=== PATIENT | female | born 1940 | race Caucasian/White ===

== ENCOUNTER 2018-04-06 12:40 | Inpatient (IN) | payer MEDICARE, MEDICAID ==
[2018-04-07] MEDS ORDERED: MECLIZINE 25 MG TABLET PO PRN (16:05)
[2018-04-07] MEDS: ACETAMINOPHEN 500 MG TABLET PO PRN (18:50)
[2018-04-07] MEDS: ASPIRIN 325 MG TAB ENTERIC-COATED PO SCH (21:30)
[2018-04-08] MEDS: ACETAMINOPHEN 500 MG TABLET PO PRN ×2 (02:33→21:26)
[2018-04-08] MEDS: LEVOTHYROXINE SODIUM 100 MCG TABLET PO SCH (07:41)
[2018-04-08] MEDS: ASPIRIN 325 MG TAB ENTERIC-COATED PO SCH (10:02)
[2018-04-08] MEDS: SPIRONOLACTONE 25 MG TAB PO SCH (10:02)
[2018-04-08] MEDS: LORATADINE 10 MG TABLET PO SCH (10:02)
[2018-04-08] MEDS ORDERED: MAGNESIUM HYDROXIDE 30 ML UDC PO ONE (10:40)
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
--- NOTE | 2018-04-08 13:38 | History & Physical ---
History of Present Illness - Date of Service Date of Service for History & Physical: 04/08/18 - History of Present Illness Admitting Diagnosis: rt hip hemiarthroplasty History of Present Illness: 77 year old female admitted to swing bed for rehab following a fall and right hip hemiarthroplasty. Patient fell at home on 04/03 as a result of vertigo. She denied LOC or head injury, with her only complaint of right sided hip pain. Initial x-ray imaging showed a right subcapital femoral neck fracture. She had a right hemiarthroplasty on 04/04/2018. She had no postop complications. While inpatient at [facility], ENT was consulted and determined that her vertigo was not vestibular in origin. She also had an ECHO to further evaluate a heart murmur, which patient reports as being WNL. Her medical history includes: HTN, hypothyroidism, dizziness, fall, right hemiaroplasty of hip, heart murmur. 04/08/2018: Patient alert & oriented x 4, sitting in chair eating lunch upon evaluation. Patient reports minimal pain, actively willing to participate in therapy. Patient requesting referral to Dr. Griffiths for a dermatology consult of multiple lesions noted on her chest, patient reporting a history of skin cancer. Patient will also need to have ASA 325mg BID restarted upon discharge, to be taken x 1 month, per orders from ortho. ASA therapy stopped while patient here due to being treated with Lovenox. PCP: [facility] [place] visiting physicians Review of Systems Reviewed: No additional complaints except as noted below Constitutional: Reports: As per HPI, Weakness. Denies: Chills, Fever, Malaise, Night sweats Eyes: Reports: As per HPI. Denies: Eye discharge, Eye pain ENT: Denies: Congestion Respiratory: Denies: Cough, Dyspnea, Wheezes Cardiovascular: Reports: Edema (RLE), Murmurs. Denies: Arrhythmia, Chest pain Endocrine: Reports: As per HPI Gastrointestinal: Reports: As per HPI, Constipation. Denies: Abdominal pain, Diarrhea Genitourinary: Reports: As per HPI Musculoskeletal: Reports: As per HPI, Other (right hip pain) Skin: Reports: As per HPI, Lesions (multiple lesions on chest) Neurological: Reports: As per HPI, Abnormal gait, Weakness Psychiatric: Reports: As per HPI Hematological/Lymphatic: Reports: As per HPI Past Medical History - SOCIAL HISTORY Smoking Status: Never smoker Alcohol Use: None - RESPIRATORY Hx Respiratory Disorders: Yes Hx Asthma: Yes - CARDIOVASCULAR Hx Cardio Disorders: Yes Comment:: murmur, echocardiogram 04/21 - NEURO Hx Neuro Disorders: Yes Hx Dizziness: Yes Hx Headaches: Yes - GI Hx GI Disorders: Yes Hx Reflux: Yes - ENDOCRINE Hx Diabetes: No - MUSCULOSKELETAL Hx Musculoskeletal Disorders: Yes Comment:: fx rt hip - PSYCH Hx Psych Problems: No - HEMATOLOGY/ONCOLOGY Hx Cancer: Yes Hx Chemotherapy: No Hx Radiation Therapy: No Family Medical History Any Significant Family History?: Yes Hx Cancer: Mother H&P Meds/Allergies - Allergies Allergies: Allergies Allergy/AdvReac Type Severity Reaction Status Date / Time No Known Drug Allergies Allergy Verified 04/07/18 15:55 - Active Medications Active Medications: Current Medications Acetaminophen (Tylenol 500mg Tab) 1,000 mg PO Q6H PRN PRN Reason: PAIN - MILD TO MODERATE (1-7) Last Admin: 04/08/18 02:33 Dose: 1,000 mg Aspirin (Ecotrin (Ec)) 325 mg PO BID [facility] Last Admin: 04/08/18 10:02 Dose: 325 mg Levothyroxine Sodium (Synthroid) 100 mcg PO DAILYTHY [facility] Last Admin: 04/08/18 07:41 Dose: 100 mcg Loratadine (Claritin) 10 mg PO DAILY [facility] Last Admin: 04/08/18 10:02 Dose: 10 mg Meclizine HCl (Antivert) 25 mg PO Q8H PRN PRN Reason: DIZZINESS Spironolactone (Aldactone) 25 mg PO DAILY [facility] Last Admin: 04/08/18 10:02 Dose: 25 mg Physical Exam - Vital Signs Vital Signs: Vital Signs - Last 24 Hrs Temp Pulse Resp BP Pulse Ox 04/08/18 08:00 97.8 F 98 H 18 136/80 94 L 04/07/18 15:00 99.0 F 109 H 20 128/60 95 - General General Appearance: Alert, Oriented x3, Cooperative, No acute distress Limitations: Physical limitation - Head Head exam: Atraumatic, Normocephalic, Normal inspection - Eye Eye exam: Normal appearance - ENT ENT exam: Mucous membranes moist - Neck Neck exam: Normal inspection, Full ROM - Respiratory Respiratory exam: Normal lung sounds bilaterally - Cardiovascular Cardiovascular Exam: Regular rate, Normal rhythm, Systolic murmur Peripheral Pulses: 2+: Radial (R), Radial (L), Dorsalis Pedis (R), Dorsalis Pedis (L) - GI/Abdominal GI/Abdominal exam: Soft, Normal bowel sounds - Rectal Rectal exam: Deferred - exam: Deferred - Extremities Extremities exam: Pedal edema (RLE) - Neurological Neurological exam: Abnormal gait, Alert, Oriented X3 - Psychiatric Psychiatric exam: Normal affect, Normal mood - Skin Type of lesion: Other (abnormal lesions noted on chest) Description of rash: Macular VTE H&P Assessment - Risk for VTE Risk for VTE: Yes Risk Level: Moderate Risk Assessment Date: 04/08/18 Risk Assessment Time: 12:00 VTE Orders Placed or Will Be Placed: Yes Plan - Detailed Diagnosis and Plan (1) Impaired mobility Current Visit: Yes Status: Acute Base Code: Z74.09 - OTHER REDUCED MOBILITY Comment: 04/08/2018: Impaired mobility due to recent hip fracture with right sided hemiarthroplasty -PT/OT ordered (2) Hip fracture Current Visit: Yes Status: Acute Base Code: S72.009A - FRACTURE OF UNSP PART OF NECK OF UNSP FEMUR, INIT Comment: 04/08/2018: surgery 04/04/2018 for right hip fracture -Follow-up scheduled with ortho 04/20/18 -Patient participating in rehab while admitted for swing bed (3) DVT prophylaxis Current Visit: Yes Status: Acute Base Code: [id number] - Comment: 04/08/2018: Patient at moderate risk due to age, hospitalization, recent surgery, and impaired mobility -Lovenox 40mg SQ daily (4) Full code status Current Visit: Yes Status: Acute Base Code: Z78.9 - OTHER SPECIFIED HEALTH STATUS Comment: 04/08/2018: Patient is a full code this admission
--- NOTE | 2018-04-08 13:56 | Physical Therapy Tx Note ---
Physical Therapy Tx Note - Treatment Note Tolerated: Good Total Time Spent With Patient: 20 Physical Therapy Tx Note: Detail (Patient was in bathroom upon LAND CLEARER arrival. Patient ambulated to chair with nursing. Patient states the muscles of her right LE are sore. Patient performed the following exercises x10 reps each: seated heel raises, seated toe raises, seated marching, LAQ, glut squeezes, abdominal isometrics, seated isometric hip abduction, and seated isometric hip adduction. Patient reports muscle soreness with exercises. Patient required verbal cueing to perform exercises correctly. Patient was left seated in chair with call light within reach.) Prognosis: Good
[2018-04-08] MEDS: DOCUSATE SODIUM 100 MG CAPSULE PO SCH (21:12)
[2018-04-08] MEDS: DIPHENHYDRAMINE HCL 25 MG CAPSULE PO PRN (23:32)
[2018-04-09] MEDS: LEVOTHYROXINE SODIUM 100 MCG TABLET PO SCH (06:21)
[2018-04-09] MEDS ORDERED: GLYCERIN ADULT SUPPOSITORY RC ONE (09:00)
[2018-04-09] MEDS: ENOXAPARIN 40 MG/0.4 ML SYR SQ SCH (10:05)
[2018-04-09] MEDS: LORATADINE 10 MG TABLET PO SCH (10:05)
[2018-04-09] MEDS: SPIRONOLACTONE 25 MG TAB PO SCH (10:05)
[2018-04-09] MEDS: DOCUSATE SODIUM 100 MG CAPSULE PO SCH ×2 (10:05→22:50)
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
--- NOTE | 2018-04-09 15:00 | Physical Therapy Tx Note ---
Physical Therapy Tx Note - Treatment Note Tolerated: Good Total Time Spent With Patient: 30 Physical Therapy Tx Note: Detail (Pt sitting up in chair upon arrival. Cooperative for therapy. Performed 10 reps each of reclined marching, knee extension, ankle dorsiflexion, resisted hip abduction w/yellow theraband, resisted knee flexion w/yellow theraband, isometric hip adduction w/pillow. Sit to stand transfer to front-wheeled walker w/SBA, ambulated to bed using front wheeled walker w/CGA, SBA for stand/sit transfer. Moderate assist for LE' s to get into bed and moderate assist to scoot up in bed. Elevated HOB, positioned bedside table, placed phone, call light, and beverage in reach. Nrsg notified.) Physical Therapy Problem List: Detail (1. General lower extremity weakness. 2. Requires assistance for transfers and gait. 3. Difficulty walking. 4. History of falls/fear of falling.) Physical Therapy Goals: 1. Pt will safely and independently get into/out of bed. 2. Pt will safely and independently perform stand pivot transfers with front-wheeled walker. 3. Pt will safely and independently ambulate over household distances/surfaces with appropriate assistive device. 4. Pt will exhibit at least 4/5 strength in major muscle groups of B LE's for greater stability with ambulation. Prognosis: Good Physical Therapy Plan: Pt will be seen 1-2 times daily M - F for instruction in LE strengthening exercises, transfer training, and gait and balance training to facilitate safe return to home environment.
[2018-04-09] MEDS ORDERED: ZINC OXIDE 28.35 GM TUBE TOP PRN (20:32)
[2018-04-10] MEDS: ACETAMINOPHEN 500 MG TABLET PO PRN ×2 (04:27→20:55)
[2018-04-10] MEDS: LEVOTHYROXINE SODIUM 100 MCG TABLET PO SCH (07:13)
[2018-04-10] MEDS: ENOXAPARIN 40 MG/0.4 ML SYR SQ SCH (09:06)
[2018-04-10] MEDS: SPIRONOLACTONE 25 MG TAB PO SCH (09:07)
[2018-04-10] MEDS: DOCUSATE SODIUM 100 MG CAPSULE PO SCH ×3 (09:07→21:20)
[2018-04-10] MEDS: LORATADINE 10 MG TABLET PO SCH (09:07)
[2018-04-10] MEDS ORDERED: LOPERAMIDE 2 MG CAPSULE PO PRN (12:24)
[2018-04-11 06:27] LABS: BASO % 0.6 % (0-6); EOS % 8.6 % (0-6); GRAN % 60.7 % (47-80); HEMATOCRIT 34.4 % (35.0-47.0); HEMOGLOBIN 10.3 gm/dl (11.6-16.0); LYMPH % 17.6 % (16-45); MEAN CORPUSCULAR HEMOGLOBIN 28.1 pg (27-33); MEAN CORPUSCULAR HGB CONC 29.9 g/dl (32-36); MEAN PLATELET VOLUME 8.5 fl (7.4-10.4); MONO % 12.5 % (0-9); PLATELET COUNT 436 K/uL (130-400); RED BLOOD COUNT 3.66 M/uL (3.80-5.40); RED CELL DISTRIBUTION WIDTH 14.5 % (11.5-14.5); WHITE BLOOD COUNT W/O DIFF 6.9 K/uL (4.2-12.2)
[2018-04-11 06:40] LABS: ALBUMIN 2.7 g/dL (4.0-5.0); ALKALINE PHOSPHATASE 102 U/L (35-104); ALT/SGPT 7 U/L (<33); AST/SGOT 11 U/L (10.0-35.0); BLOOD UREA NITROGEN 10 mg/dL (8-23); CREATININE 0.6 mg/dL (0.5-0.9); EST GLOMERULAR FILTRATION RATE > 60 mL/min; GLUCOSE,RANDOM 85 mg/dL (74-109); TOTAL PROTEIN 5.4 g/dL (6.6-8.7)
[2018-04-11] MEDS: LEVOTHYROXINE SODIUM 100 MCG TABLET PO SCH (08:15)
[2018-04-11] MEDS: LORATADINE 10 MG TABLET PO SCH (09:57)
[2018-04-11] MEDS: SPIRONOLACTONE 25 MG TAB PO SCH (09:57)
[2018-04-11] MEDS: ENOXAPARIN 40 MG/0.4 ML SYR SQ SCH (09:57)
[2018-04-11] MEDS: DOCUSATE SODIUM 100 MG CAPSULE PO SCH ×2 (09:57→22:01)
--- NOTE | 2018-04-11 11:52 | Swing Bed Certification/Recert ---
Initial Certification Due: 04/07/18 14 Day Re-Cert Due: 04/21/18 44 Day Re-Cert Due: 05/21/18 76 Day Re-Cert Due: 06/20/18 CERTIFICATION 3 CERTIFICATION OF PATIENT ADMISSION Required at time of admission. Due: 04/07/18 I certify that SNF services are required to be given on an inpatient basis because of the above named patient's need for alf care on a continuing basis for the condition(s) for which he/she was receiving inpatient hospital services prior to his/her transfer to the SNF. The patient's current needs for skilled care includes: [physical therapy, occupational therapy, assistance with transfers, assistance with ADLs] Palma Oliveira, N.P. 04/11/18
[2018-04-11] MEDS: ACETAMINOPHEN 500 MG TABLET PO PRN ×2 (13:15→19:46)
[2018-04-11] MEDS: DIPHENHYDRAMINE HCL 25 MG CAPSULE PO PRN (23:05)
[2018-04-12] MEDS: ACETAMINOPHEN 500 MG TABLET PO PRN ×3 (02:45→21:43)
[2018-04-12] MEDS: LEVOTHYROXINE SODIUM 100 MCG TABLET PO SCH (06:17)
[2018-04-12] MEDS: DOCUSATE SODIUM 100 MG CAPSULE PO SCH ×2 (09:52→21:43)
[2018-04-12] MEDS: SPIRONOLACTONE 25 MG TAB PO SCH (09:52)
[2018-04-12] MEDS: LORATADINE 10 MG TABLET PO SCH (09:53)
[2018-04-12] MEDS: ENOXAPARIN 40 MG/0.4 ML SYR SQ SCH (09:53)
--- NOTE | 2018-04-12 09:56 | Occupational Therapy Tx Note ---
Occupational Therapy Tx Note - Treatment Note Tolerated: Good Total Time Spent With Patient: 45 (ADL) Occupational Therapy Treatment Note: Detail (S: Pt up in chair, agreeable to showering. She does not have her clothing or dye and chemical coordinator available. O: Sit to stand and amb to toilet with 2 wheeled walker and SBA. Pt completed doffing of briefs with dye and chemical coordinator as well as toileting and hygiene Indly. Pt amb to shower and doffed gown with assist to untie. Pt sat on raised commode chair and completed total body showering with SBA during standing. She was unable to wash right lower leg and foot due to hip precautions but was Ind with remaining showering and she was Ind with drying self with exception of right foot/lower leg. Pt amb to chair with 2 wheeled walker and SBA. She was educated and demonstrated LE dressing technique for donning brief with dye and chemical coordinator. She donned gown with assist to tie. Slipper socks were donned with total assist for right and mod assist for left. Pt able to brush hair Indly. A: Pt mildly fatigued but did not require rest breaks during ADLs. Ind with shower with exception of right LE. Ind with partial dressing using dye and chemical coordinator and modified techniques.) Occupational Therapy Problem List: Detail (1. Decreased Ind with dressing. 2. Decreased Ind with showering/bathing. 3. Decreased knowledge of total hip precautions. 4. Decreased UE strength and overall endurance needed to return home alone.) Occupational Therapy Goals: 1. Pt will be safe and Ind with total body dressing using adaptive equipment while maintaining total hip precautions. 2. Pt will be safe and Ind with showering and/or sponge bathing. 3. Pt will recall total hip precautions and demonstrate during ADLs. 4. Pt will improve overall endurance and UE strength to allow safe and Ind self cares and functional mobility. Prognosis: Good Occupational Therapy Plan: OT 2-4 times weekly to address self cares, functional mobility, endurance, UE function to allow safe and Ind return home.
--- NOTE | 2018-04-12 13:46 | Physical Therapy Tx Note ---
Physical Therapy Tx Note - Treatment Note Tolerated: Good Total Time Spent With Patient: 25 Physical Therapy Tx Note: Detail (The patient was sitting up in chair when PT arrived. The patient ambulated with wheeled walker WBAT on the R LE a distance of 65 feet x 1 with supervison for safety only. The patient ambulates with increased trunk flexion. The patient completed the following LE strengthening exercises bilaterally : LAQ, gluteal squeezes, hip adductor squeezes, resisted hip abduction , hamstring curls and ankle pumps all x 10 reps.) Physical Therapy Problem List: Detail (1. General lower extremity weakness. 2. Requires assistance for transfers and gait. 3. Difficulty walking. 4. History of falls/fear of falling.) Physical Therapy Goals: 1. Pt will safely and independently get into/out of bed. 2. Pt will safely and independently perform stand pivot transfers with front-wheeled walker. 3. Pt will safely and independently ambulate over household distances/surfaces with appropriate assistive device. 4. Pt will exhibit at least 4/5 strength in major muscle groups of B LE's for greater stability with ambulation. Physical Therapy Plan: Pt will be seen 1-2 times daily M - F for instruction in LE strengthening exercises, transfer training, and gait and balance training to facilitate safe return to home environment.
[2018-04-13] MEDS: LEVOTHYROXINE SODIUM 100 MCG TABLET PO SCH (06:12)
[2018-04-13] MEDS: ENOXAPARIN 40 MG/0.4 ML SYR SQ SCH ×2 (08:30→11:19)
[2018-04-13] MEDS: LORATADINE 10 MG TABLET PO SCH ×2 (08:30→11:18)
[2018-04-13] MEDS: SPIRONOLACTONE 25 MG TAB PO SCH ×2 (08:30→11:18)
[2018-04-13] MEDS: DOCUSATE SODIUM 100 MG CAPSULE PO SCH ×3 (08:30→22:02)
--- NOTE | 2018-04-13 11:13 | Occupational Therapy Tx Note ---
Occupational Therapy Tx Note - Treatment Note Tolerated: Good Total Time Spent With Patient: 20 (ADL) Occupational Therapy Treatment Note: Detail (S: Pt up in chair, needs to use the bathroom. O: Sit to stand and amb to bathroom with 2 wheeled walker Indly. Pt doffed briefs Indly and completed toileting including hygiene and briefs Indly. Pt amb to sink and washed hands Indly with 2 wheeled walker. Pt amb to chair with 2 wheeled walker Indly. Pt educated and demonstrated learning of modified LE dressing techniques using administrative executive and sock aid to doff slipper socks and don hospital pants and slipper socks. Reviewed kitchen set up , pt feels she has her technique down as she was not very mobile prior to fracture. Pt amb [address] hallway with 2 wheeled walker Indly. A: Ind with use of adaptive equipment for pants/socks (she does not have her own clothing available), Ind with toileting.) Occupational Therapy Problem List: Detail (1. Decreased Ind with dressing. 2. Decreased Ind with showering/bathing. 3. Decreased knowledge of total hip precautions. 4. Decreased UE strength and overall endurance needed to return home alone.) Occupational Therapy Goals: 1. Pt will be safe and Ind with total body dressing using adaptive equipment while maintaining total hip precautions. 2. Pt will be safe and Ind with showering and/or sponge bathing. 3. Pt will recall total hip precautions and demonstrate during ADLs. 4. Pt will improve overall endurance and UE strength to allow safe and Ind self cares and functional mobility. Prognosis: Good Occupational Therapy Plan: OT 2-4 times weekly to address self cares, functional mobility, endurance, UE function to allow safe and Ind return home.
--- NOTE | 2018-04-13 12:03 | Physical Therapy Tx Note ---
Physical Therapy Tx Note - Treatment Note Tolerated: Fair Total Time Spent With Patient: 35 Physical Therapy Tx Note: Detail (The patient was up in chair when PT arrived and reported she was having minimal R hip pain but did not want to take pain medication. The patient ambulated with wheeled walker independently to bed. The patient initially required max PA to lift Le's with sit to supine, stating " I can't lift my legs at all." The patient was shown how to use a strap to lift R LE and required maximal verbal encouragement and moderate assist to use strap. The patient was independent with supine to sit, one time with using handrailing, the other time without. The patient was also instructed to use L LE to lift RLE with sit to supine , patient required maximal verbal cues, encouragement and minimal PA. The patient completed supine LE exercises: R LE heel slides, hip abduction, gluteal sets, hip adductor squeezes, quadricep sets all x 10 reps, SLR x 3 reps.The patient ambulated with wheeled walker a distance of 26 feet x 1. The patient had difficulty with motor planning with supine to and from sit transfer. PT will continue to emphasize this.) Physical Therapy Problem List: Detail (1. General lower extremity weakness. 2. Requires assistance for transfers and gait. 3. Difficulty walking. 4. History of falls/fear of falling.) Physical Therapy Goals: 1. Pt will safely and independently get into/out of bed. 2. Pt will safely and independently perform stand pivot transfers with front-wheeled walker. 3. Pt will safely and independently ambulate over household distances/surfaces with appropriate assistive device. 4. Pt will exhibit at least 4/5 strength in major muscle groups of B LE's for greater stability with ambulation. Physical Therapy Plan: Pt will be seen 1-2 times daily M - F for instruction in LE strengthening exercises, transfer training, and gait and balance training to facilitate safe return to home environment.
[2018-04-13] MEDS: ACETAMINOPHEN 500 MG TABLET PO PRN (20:17)
[2018-04-14] MEDS: LEVOTHYROXINE SODIUM 100 MCG TABLET PO SCH (06:12)
[2018-04-14] MEDS: LORATADINE 10 MG TABLET PO SCH (09:40)
[2018-04-14] MEDS: DOCUSATE SODIUM 100 MG CAPSULE PO SCH ×2 (09:41→21:13)
[2018-04-14] MEDS: SPIRONOLACTONE 25 MG TAB PO SCH (09:41)
[2018-04-14] MEDS: ENOXAPARIN 40 MG/0.4 ML SYR SQ SCH (09:41)
[2018-04-14] MEDS: ACETAMINOPHEN 500 MG TABLET PO PRN ×2 (11:33→21:13)
--- NOTE | 2018-04-14 11:43 | Physical Therapy Tx Note ---
Physical Therapy Tx Note - Treatment Note Tolerated: Good Total Time Spent With Patient: 40 Physical Therapy Tx Note: Detail (Patient was reclined in chair upon PATIENT ADMITTING CLERK arrival. Patient states is experiencing a dizzy spell. Patient transferred sit to and from stand SBA x1. Patient ambulated 18 feet with wheeled walker SBA x1. Patient transferred sit to and from stand SBA x1. Patient ambulated 18 feet with wheeled walker SBA x1. Patient performed the following exercises x10 reps each seated in chair: LAQ, marching, heel raises, toe raises, hamstring curls with red theraband, isometric hip adduction, glut squeezes, and abdominal isometrics. Patient transferred sit to and from stand CGA x1. Patient ambulated 5 feet with wheeled walker CGA x1. Patient transferred sit to supine min assist x1 with patient using strap around foot right to assist with lifting. Patient scooted up in bed min assist x1 to keep left foot from sliding. Patient transferred supine to sit independently. Patient transferred sit to and from stand SBA x1. Patient ambulated 5 feet with wheeled walker CGA x1. Patient tolerated treatment well. Patient reports dizziness throughout treatment. Patient required verbal cueing with sit to supine transfer and with exercises to perform correctly. Patient was left reclined in chair with call light within reach.) Physical Therapy Problem List: Detail (1. General lower extremity weakness. 2. Requires assistance for transfers and gait. 3. Difficulty walking. 4. History of falls/fear of falling.) Physical Therapy Goals: 1. Pt will safely and independently get into/out of bed. 2. Pt will safely and independently perform stand pivot transfers with front-wheeled walker. 3. Pt will safely and independently ambulate over household distances/surfaces with appropriate assistive device. 4. Pt will exhibit at least 4/5 strength in major muscle groups of B LE's for greater stability with ambulation. Prognosis: Good Physical Therapy Plan: Pt will be seen 1-2 times daily M - F for instruction in LE strengthening exercises, transfer training, and gait and balance training to facilitate safe return to home environment.
--- NOTE | 2018-04-14 14:45 | Occupational Therapy Tx Note ---
Occupational Therapy Tx Note - Treatment Note Tolerated: Good Total Time Spent With Patient: 20 (ther ex) Occupational Therapy Treatment Note: Detail (S: Pt sitting up in chair, had a migraine headache earlier that is subsiding. O: Reviewed OT hip kit information and pt would like to also purchase a leg newsstand vendor. Pt completed kushal UE exercises with red theraband including bicep curls, tricep extensions, shoulder flexion, shoulder extension, shoulder horizontal abduction, shoulder horizontal adduction, shoulder abduction with arms at sides x 10 reps each. Pt educated re: HEP but will require continued teaching. A: Fatigue in arms after ther ex) Occupational Therapy Problem List: Detail (1. Decreased Ind with dressing. 2. Decreased Ind with showering/bathing. 3. Decreased knowledge of total hip precautions. 4. Decreased UE strength and overall endurance needed to return home alone.) Occupational Therapy Goals: 1. Pt will be safe and Ind with total body dressing using adaptive equipment while maintaining total hip precautions. 2. Pt will be safe and Ind with showering and/or sponge bathing. 3. Pt will recall total hip precautions and demonstrate during ADLs. 4. Pt will improve overall endurance and UE strength to allow safe and Ind self cares and functional mobility. Prognosis: Good Occupational Therapy Plan: OT 2-4 times weekly to address self cares, functional mobility, endurance, UE function to allow safe and Ind return home.
[2018-04-15] MEDS: ACETAMINOPHEN 500 MG TABLET PO PRN ×2 (03:08→21:40)
[2018-04-15] MEDS: LEVOTHYROXINE SODIUM 100 MCG TABLET PO SCH (07:00)
--- NOTE | 2018-04-15 09:46 | Physician Progress Note ---
Subjective - Date Date of Progress Note: 04/15/18 - Admitting Diagnosis Diagnosis: rt hip hemiarthroplasty - Subjective Events since last encounter: The patient is alert, awake and oriented. She complains that she has had some dizziness but feels that she is improving. Nursing Care Plan Problem List Activity Intolerance (Swing Bed) Start: 04/07/18 15: 22 Freq: Status: Active Protocol: Created 04/07/18 15:22 [facility] (Rec: 04/07/18 15:22 KM [id number]) Altered Peripheral Tissue Perfusion Start: 04/07/18 16: 57 Freq: Status: Active Protocol: Created 04/07/18 16:57 [facility] (Rec: 04/07/18 16:57 [facility] [id number]) Altered Thought Process (Fall Risk) Start: 04/07/18 15: 32 Freq: Status: Active Protocol: Created 04/07/18 15:32 [facility] (Rec: 04/07/18 15:32 KM [id number]) High Risk: Post-Op Complications Start: 04/07/18 16: 57 Freq: Status: Active Protocol: Created 04/07/18 16:57 [facility] (Rec: 04/07/18 16:57 KM [id number]) Impaired Mobility (Fall Risk) Start: 04/07/18 15: 32 Freq: Status: Active Protocol: Created 04/07/18 15:32 [facility] (Rec: 04/07/18 15:32 KM [id number]) Impaired Skin Integrity Start: 04/07/18 16: 57 Freq: Status: Active Protocol: Created 04/07/18 16:57 [facility] (Rec: 04/07/18 16:57 KM [id number]) Knowledge Deficit (Swing Bed) Start: 04/07/18 15: 22 Freq: Status: Active Protocol: Created 04/07/18 15:22 [facility] (Rec: 04/07/18 15:22 KM [id number]) Knowledge Deficit: Total Hip Replacement Start: 04/07/18 16: 57 Freq: Status: Active Protocol: Created 04/07/18 16:57 [facility] (Rec: 04/07/18 16:57 KM [id number]) Pain Start: 04/07/18 16: 57 Freq: Status: Active Protocol: Created 04/07/18 16:57 [facility] (Rec: 04/07/18 16:57 [facility] [id number]) Pain (Swing Bed) Start: 04/07/18 15: 22 Freq: Status: Active Protocol: Created 04/07/18 15:22 [facility] (Rec: 04/07/18 15:22 [facility] [id number]) Risk for Injury (Fall Risk) Start: 04/07/18 15: 32 Freq: Status: Active Protocol: Created 04/07/18 15:32 [facility] (Rec: 04/07/18 15:32 [facility] [id number]) Skin Integrity, Impaired (Swing Bed) Start: 04/09/18 23: 29 Freq: Status: Active Protocol: Created 04/09/18 23:29 [facility] (Rec: 04/09/18 23:29 [facility] [id number]) General - Cognitive Patterns Speech: Normal Thought Process: Intact Thought Content: Normal - Communication Select best description of speech pattern: Clear Speech Ability to express ideas and wants: Understood Understanding verbal content: Understands - Mood and Behavior Patterns Appearance: Well Groomed Mood: Normal Attitude: Cooperative Motor Activity: Calm Affect: Appropriate Hallucinations: Denies - Physical Functioning Activity Level: Up with assist x1 Turning: With partial assist ROM Ability: Moves all extremities Assistive Devices: 2 Wheel Walker Ambulation Ability: Independent Bed Mobility: Independent Transfer Ability: Independent Bathing Ability: Independent Personal Hygiene: Independent Dressing Ability: Independent Eating (Feeding) Ability: Independent Toileting Ability: Independent Administer Own Medication: Independent - Continence Bowel Pattern: Normal for Patient Bladder Pattern: Normal Urinary Incontinence: Urge Meds/Allergies - Allergies Allergies Allergy/AdvReac Type Severity Reaction Status Date / Time No Known Drug Allergies Allergy Verified 04/07/18 15:55 - Active Medications Current Medications Acetaminophen (Tylenol 500mg Tab) 1,000 mg PO Q6H PRN PRN Reason: PAIN - MILD TO MODERATE (1-7) Last Admin: 04/15/18 03:08 Dose: 1,000 mg Diphenhydramine HCl (Benadryl Capsule) 25 mg PO QHS PRN PRN Reason: INSOMNIA Last Admin: 04/11/18 23:05 Dose: 25 mg Docusate Sodium (Colace) 100 mg PO BID KEI Last Admin: 04/14/18 21:13 Dose: 100 mg Enoxaparin Sodium (Lovenox) 40 mg SQ DAILY [facility] Last Admin: 04/14/18 09:41 Dose: 40 mg Levothyroxine Sodium (Synthroid) 100 mcg PO DAILYTHY [facility] Last Admin: 04/15/18 07:00 Dose: 100 mcg Loperamide HCl (Immodium) 2 mg PO Q4H PRN PRN Reason: DIARRHEA Loratadine (Claritin) 10 mg PO DAILY [facility] Last Admin: 04/14/18 09:40 Dose: 10 mg Meclizine HCl (Antivert) 25 mg PO Q8H PRN PRN Reason: DIZZINESS Spironolactone (Aldactone) 25 mg PO DAILY [facility] Last Admin: 04/14/18 09:41 Dose: 25 mg Zinc Oxide (Desitin) 28.35 gm TOP BID PRN PRN Reason: RASH Objective - Vital Signs Vital Signs: Vital Signs - Last 24 Hrs Temp Pulse Resp BP Pulse Ox 04/15/18 08:00 98.5 F 77 16 112/58 96 04/14/18 20:00 99.2 F 106 H 20 135/80 94 L - General General Appearance: Alert, Oriented x3, Cooperative, No acute distress Limitations: Physical limitation - Head Head exam: Atraumatic, Normocephalic, Normal inspection - Eye Eye exam: Normal appearance - ENT ENT exam: Mucous membranes moist - Neck Neck exam: Normal inspection, Full ROM - Respiratory Respiratory exam: Normal lung sounds bilaterally - Cardiovascular Cardiovascular Exam: Regular rate, Normal rhythm, Systolic murmur Peripheral Pulses: 2+: Radial (R), Radial (L), Dorsalis Pedis (R), Dorsalis Pedis (L) - GI/Abdominal GI/Abdominal exam: Soft, Normal bowel sounds - Rectal Rectal exam: Deferred - exam: Deferred - Extremities Extremities exam: Pedal edema (RLE) - Neurological Neurological exam: Abnormal gait, Alert, Oriented X3 - Psychiatric Psychiatric exam: Normal affect, Normal mood - Skin Type of lesion: Other (abnormal lesions noted on chest) Description of rash: Macular H&P Results - Labs Result Diagrams: 04/11/18 05:50 04/11/18 05:50 Discharge Potential - Discharge Needs Community Services Used Prior to Admission: Home Health Aide, Home Health Nurse Patient Discharge Plan Description: Return Home, Visiting Nurse Community Services Needed at Discharge: Home Health Aide, Home Health Nurse, Occupational Therapy, Physical Therapy Plan - Swing Bed Certification Initial Certification Due: 04/07/18 14 Day Re-Cert Due: 04/21/18 44 Day Re-Cert Due: 05/21/18 74 Day Re-Cert Due: 06/20/18 - Detailed Diagnosis and Plan (1) Hip fracture Current Visit: Yes Status: Acute Base Code: S72.009A - FRACTURE OF UNSP PART OF NECK OF UNSP FEMUR, INIT Comment: - 04/08/2018 - date of admission s/p right hip fracture. - 04/15/2018: - To follow up with Orthopedic surgery on 04/20/18 - Daily PT/OT: strengthing, endurance, functional mobility and transfering. The patient has been progressing as expected. (2) Impaired mobility Current Visit: Yes Status: Acute Base Code: Z74.09 - OTHER REDUCED MOBILITY Comment: 04/15/2018: - Impaired mobility s/p hip fracture with right hemiarthroplasty. - PT/OT daily treatment for strengthening/conditioning. - Fall precuations. Antivert 25mg Q8H PRN ordered. (3) DVT prophylaxis Current Visit: Yes Status: Acute Base Code: [id number] - Comment: 04/15/2018: Patient at moderate risk due to age, hospitalization, recent surgery , and impaired mobility -Lovenox 40mg SQ daily (4) Full code status Current Visit: Yes Status: Acute Base Code: Z78.9 - OTHER SPECIFIED HEALTH STATUS Comment: 04/15/2018: Patient is a full code this admission - Disposition The patient is progressing well with therapy and has minimal pain of the right hip. She is scheduled to be seen by Orthopedic next week for review. Possible discharge with continued home therapy next week.
[2018-04-15] MEDS: ENOXAPARIN 40 MG/0.4 ML SYR SQ SCH (10:05)
[2018-04-15] MEDS: DOCUSATE SODIUM 100 MG CAPSULE PO SCH ×2 (10:06→21:40)
[2018-04-15] MEDS: LORATADINE 10 MG TABLET PO SCH (10:06)
[2018-04-15] MEDS: SPIRONOLACTONE 25 MG TAB PO SCH (10:07)
--- NOTE | 2018-04-15 11:05 | Physical Therapy Tx Note ---
Physical Therapy Tx Note - Treatment Note Tolerated: Good Total Time Spent With Patient: 30 Physical Therapy Tx Note: Detail (Patient states feeling better today with no pain in right hip or thigh. Patient was ambulating back to chair from bathroom with nursing. Patient transferred sit to and from stand SBA x1. Patient ambulated 64 feet with wheeled walker SBA x1. Patient performed the following exercises: seated marching x20, LAQ x15, seated isometric hip abduction x15, seated isometric hip adduction x15, standing heel raises x10, standing toe raises x10, squats x10, standing right hip extension x10, and standing left hip extension x3. Patient tolerated treatment well. Patient required verbal cueing with ambulation to lengthen steps and stand up straight. Patient reports right thigh and hip pain with standing exercises and ambulation. Patient reports fatigued after treatment. Patient was left seated in chair with call light within reach.) Physical Therapy Problem List: Detail (1. General lower extremity weakness. 2. Requires assistance for transfers and gait. 3. Difficulty walking. 4. History of falls/fear of falling.) Physical Therapy Goals: 1. Pt will safely and independently get into/out of bed. 2. Pt will safely and independently perform stand pivot transfers with front-wheeled walker. 3. Pt will safely and independently ambulate over household distances/surfaces with appropriate assistive device. 4. Pt will exhibit at least 4/5 strength in major muscle groups of B LE's for greater stability with ambulation. Prognosis: Good Physical Therapy Plan: Pt will be seen 1-2 times daily M - F for instruction in LE strengthening exercises, transfer training, and gait and balance training to facilitate safe return to home environment.
--- NOTE | 2018-04-15 14:11 | Physical Therapy Tx Note ---
Physical Therapy Tx Note - Treatment Note Tolerated: Good Total Time Spent With Patient: 30 Physical Therapy Tx Note: Detail (Patient was reclined in chair upon CUSTOMS BROKERAGE AGENT arrival. Patient states she's tired this afternoon. Patient transferred sit to and from stand SBA x1. Patient ambulated 90 feet with wheeled walker SBA x1. Patient performed the following exercises seated in chair x10 reps each: seated marching, and LAQ. Patient transferred sit to and from stand SBA x1. Patient transferred sit to supine independently with using strap to lift right LE. Patient required verbal cueing and encouragement during transfer. Patient performed the following exercises x10 reps each supine in bed: SLR with strap right LE, SLR without strap left LE, heel slides, hip abduction, and glut squeezes. Patient tolerated treatment well. Patient reports fatigued after treatment. Patient was left supine in bed with call light within reach.) Physical Therapy Problem List: Detail (1. General lower extremity weakness. 2. Requires assistance for transfers and gait. 3. Difficulty walking. 4. History of falls/fear of falling.) Physical Therapy Goals: 1. Pt will safely and independently get into/out of bed. 2. Pt will safely and independently perform stand pivot transfers with front-wheeled walker. 3. Pt will safely and independently ambulate over household distances/surfaces with appropriate assistive device. 4. Pt will exhibit at least 4/5 strength in major muscle groups of B LE's for greater stability with ambulation. Prognosis: Good Physical Therapy Plan: Pt will be seen 1-2 times daily M - F for instruction in LE strengthening exercises, transfer training, and gait and balance training to facilitate safe return to home environment.
[2018-04-16] MEDS: ACETAMINOPHEN 500 MG TABLET PO PRN ×2 (03:30→21:06)
[2018-04-16] MEDS: LEVOTHYROXINE SODIUM 100 MCG TABLET PO SCH (06:39)
[2018-04-16] MEDS: SPIRONOLACTONE 25 MG TAB PO SCH (09:46)
[2018-04-16] MEDS: DOCUSATE SODIUM 100 MG CAPSULE PO SCH ×2 (09:46→21:06)
[2018-04-16] MEDS: LORATADINE 10 MG TABLET PO SCH (09:46)
[2018-04-16] MEDS: ENOXAPARIN 40 MG/0.4 ML SYR SQ SCH (09:47)
--- NOTE | 2018-04-16 09:59 | Physical Therapy Tx Note ---
Physical Therapy Tx Note - Treatment Note Tolerated: Good Total Time Spent With Patient: 30 Physical Therapy Tx Note: Detail (The patietn was up in a chair when PT arrived. The patient initially had no complaints. The patient ambulated with wheeled walker 11 feet x 2 to and from bathroom WBAT on the R LE independently. The patient was taken to Rehab depart an ambulated on 2 steps with use of 2 railings with supervision for safety and using proper technique. The patient complained of lightheadness after ambulating on stairs. The patient was taken back to room and completed LE exercises seated including : ankle pumps, red T- band hamstring curls, LAQ and hip abduction all x 15 reps, hip adductor squeezes and gluteal sets all x 15 reps. Will practice bed mobility this pm.) Physical Therapy Problem List: Detail (1. General lower extremity weakness. 2. Requires assistance for transfers and gait. 3. Difficulty walking. 4. History of falls/fear of falling.) Physical Therapy Goals: 1. Pt will safely and independently get into/out of bed. 2. Pt will safely and independently perform stand pivot transfers with front-wheeled walker. 3. Pt will safely and independently ambulate over household distances/surfaces with appropriate assistive device. 4. Pt will exhibit at least 4/5 strength in major muscle groups of B LE's for greater stability with ambulation. Physical Therapy Plan: Pt will be seen 1-2 times daily M - F for instruction in LE strengthening exercises, transfer training, and gait and balance training to facilitate safe return to home environment.
--- NOTE | 2018-04-16 13:56 | Physical Therapy Tx Note ---
Physical Therapy Tx Note - Treatment Note Tolerated: Good Total Time Spent With Patient: 30 Physical Therapy Tx Note: Detail (The patient was up in a chair when PT arrived. The patient ambulated independently to bathroom with wheeled walker WBAT on the R LE. The patient acheived supine to and from sit transfer x 2 with use of leg marketing researcher on the R LE. ( after increased effort). The patient completed the following LE strengthening exercises in supine :bilateral heel slides, quad sets, hip adductor squeezes, all x 15 reps and hip abduction supine x 10 reps. The patient was left in bed with call light in place.) Physical Therapy Problem List: Detail (1. General lower extremity weakness. 2. Requires assistance for transfers and gait. 3. Difficulty walking. 4. History of falls/fear of falling.) Physical Therapy Goals: 1. Pt will safely and independently get into/out of bed. 2. Pt will safely and independently perform stand pivot transfers with front-wheeled walker. 3. Pt will safely and independently ambulate over household distances/surfaces with appropriate assistive device. 4. Pt will exhibit at least 4/5 strength in major muscle groups of B LE's for greater stability with ambulation. Physical Therapy Plan: Pt will be seen 1-2 times daily M - F for instruction in LE strengthening exercises, transfer training, and gait and balance training to facilitate safe return to home environment.
[2018-04-17] MEDS: ACETAMINOPHEN 500 MG TABLET PO PRN ×2 (03:27→21:54)
[2018-04-17] MEDS: LEVOTHYROXINE SODIUM 100 MCG TABLET PO SCH (06:57)
[2018-04-17] MEDS: DOCUSATE SODIUM 100 MG CAPSULE PO SCH ×2 (09:44→21:54)
[2018-04-17] MEDS: ENOXAPARIN 40 MG/0.4 ML SYR SQ SCH (09:45)
[2018-04-17] MEDS: LORATADINE 10 MG TABLET PO SCH (09:45)
[2018-04-17] MEDS: SPIRONOLACTONE 25 MG TAB PO SCH (09:45)
[2018-04-18] MEDS: ACETAMINOPHEN 500 MG TABLET PO PRN ×2 (04:01→21:21)
[2018-04-18] MEDS: LEVOTHYROXINE SODIUM 100 MCG TABLET PO SCH (07:20)
[2018-04-18] MEDS: DOCUSATE SODIUM 100 MG CAPSULE PO SCH ×2 (10:20→21:21)
[2018-04-18] MEDS: SPIRONOLACTONE 25 MG TAB PO SCH (10:20)
[2018-04-18] MEDS: LORATADINE 10 MG TABLET PO SCH (10:20)
[2018-04-18] MEDS: ENOXAPARIN 40 MG/0.4 ML SYR SQ SCH (10:20)
[2018-04-19] MEDS: ACETAMINOPHEN 500 MG TABLET PO PRN ×2 (03:38→21:28)
[2018-04-19] MEDS: LEVOTHYROXINE SODIUM 100 MCG TABLET PO SCH (06:26)
[2018-04-19] MEDS: LORATADINE 10 MG TABLET PO SCH (09:26)
--- NOTE | 2018-04-19 09:26 | Physician Progress Note ---
Subjective - Date Date of Progress Note: 04/19/18 - Admitting Diagnosis Diagnosis: rt hip hemiarthroplasty - Subjective Nursing Care Plan Problem List Activity Intolerance (Swing Bed) Start: 04/07/18 15: 22 Freq: Status: Active Protocol: Created 04/07/18 15:22 KM (Rec: 04/07/18 15:22 [facility] [id number][place] Altered Peripheral Tissue Perfusion Start: 04/07/18 16: 57 Freq: Status: Active Protocol: Created 04/07/18 16:57 [facility] (Rec: 04/07/18 16:57 [facility] [id number]) Altered Thought Process (Fall Risk) Start: 04/07/18 15: 32 Freq: Status: Active Protocol: Created 04/07/18 15:32 KM (Rec: 04/07/18 15:32 [facility] [id number]) High Risk: Post-Op Complications Start: 04/07/18 16: 57 Freq: Status: Active Protocol: Created 04/07/18 16:57 KM (Rec: 04/07/18 16:57 [facility] [id number]) Impaired Mobility (Fall Risk) Start: 04/07/18 15: 32 Freq: Status: Active Protocol: Created 04/07/18 15:32 KM (Rec: 04/07/18 15:32 [facility] [id number]) Impaired Skin Integrity Start: 04/07/18 16: 57 Freq: Status: Active Protocol: Created 04/07/18 16:57 KM (Rec: 04/07/18 16:57 [facility] [id number]) Knowledge Deficit (Swing Bed) Start: 04/07/18 15: 22 Freq: Status: Active Protocol: Created 04/07/18 15:22 KM (Rec: 04/07/18 15:22 [facility] [id number]) Knowledge Deficit: Total Hip Replacement Start: 04/07/18 16: 57 Freq: Status: Active Protocol: Created 04/07/18 16:57 [facility] (Rec: 04/07/18 16:57 [facility] [id number]) Pain Start: 04/07/18 16: 57 Freq: Status: Active Protocol: Created 04/07/18 16:57 [facility] (Rec: 04/07/18 16:57 [facility] [id number]) Pain (Swing Bed) Start: 04/07/18 15: 22 Freq: Status: Active Protocol: Created 04/07/18 15:22 [facility] (Rec: 04/07/18 15:22 KM [id number]) Risk for Injury (Fall Risk) Start: 04/07/18 15: 32 Freq: Status: Active Protocol: Created 04/07/18 15:32 [facility] (Rec: 04/07/18 15:32 KM [id number]) Skin Integrity, Impaired (Swing Bed) Start: 04/09/18 23: 29 Freq: Status: Active Protocol: Created 04/09/18 23:29 LPR (Rec: 04/09/18 23:29 [facility] [id number]) Subjective: The patient still has some pain on ambulation but has had marked improvement since admission. She has no new complaints at this time. General - Cognitive Patterns Speech: Normal Thought Process: Intact Thought Content: Normal - Communication Select best description of speech pattern: Clear Speech Ability to express ideas and wants: Understood Understanding verbal content: Understands - Mood and Behavior Patterns Appearance: Well Groomed Mood: Normal Attitude: Cooperative Motor Activity: Calm Affect: Appropriate Hallucinations: Denies - Physical Functioning Activity Level: Up with assist x1 Turning: Self ad mihaela ROM Ability: Moves all extremities Assistive Devices: 2 Wheel Walker, Hospital Bed Ambulation Ability: Needs Assist Bed Mobility: Needs Assist Transfer Ability: Needs Assist Bathing Ability: Needs Assist Personal Hygiene: Needs Assist Dressing Ability: Independent Eating (Feeding) Ability: Independent Toileting Ability: Needs Assist Administer Own Medication: Independent - Continence Bowel Pattern: Normal for Patient, No Bowel Movement Bladder Pattern: Normal Urinary Incontinence: Urge Meds/Allergies - Allergies Allergies Allergy/AdvReac Type Severity Reaction Status Date / Time No Known Drug Allergies Allergy Verified 04/07/18 15:55 - Active Medications Current Medications Acetaminophen (Tylenol 500mg Tab) 1,000 mg PO Q6H PRN PRN Reason: PAIN - MILD TO MODERATE (1-7) Last Admin: 04/19/18 03:38 Dose: 1,000 mg Diphenhydramine HCl (Benadryl Capsule) 25 mg PO QHS PRN PRN Reason: INSOMNIA Last Admin: 04/11/18 23:05 Dose: 25 mg Docusate Sodium (Colace) 100 mg PO BID KEI Last Admin: 04/18/18 21:21 Dose: 100 mg Enoxaparin Sodium (Lovenox) 40 mg SQ DAILY [facility] Last Admin: 04/18/18 10:20 Dose: 40 mg Levothyroxine Sodium (Synthroid) 100 mcg PO DAILYTHY [facility] Last Admin: 04/19/18 06:26 Dose: 100 mcg Loperamide HCl (Immodium) 2 mg PO Q4H PRN PRN Reason: DIARRHEA Loratadine (Claritin) 10 mg PO DAILY [facility] Last Admin: 04/18/18 10:20 Dose: 10 mg Meclizine HCl (Antivert) 25 mg PO Q8H PRN PRN Reason: DIZZINESS Spironolactone (Aldactone) 25 mg PO DAILY [facility] Last Admin: 04/18/18 10:20 Dose: 25 mg Zinc Oxide (Desitin) 28.35 gm TOP BID PRN PRN Reason: RASH Objective - Vital Signs Vital Signs: Vital Signs - Last 24 Hrs Temp Pulse Pulse Resp BP Pulse Ox 04/19/18 08:00 98.9 F 95 H 18 117/81 97 04/18/18 19:34 97.7 F 105 H 20 129/73 96 - General General Appearance: Alert, Oriented x3, Cooperative, No acute distress Limitations: Physical limitation - Head Head exam: Atraumatic, Normocephalic, Normal inspection - Eye Eye exam: Normal appearance - ENT ENT exam: Mucous membranes moist - Neck Neck exam: Normal inspection, Full ROM - Respiratory Respiratory exam: Normal lung sounds bilaterally - Cardiovascular Cardiovascular Exam: Regular rate, Normal rhythm, Systolic murmur Peripheral Pulses: 2+: Radial (R), Radial (L), Dorsalis Pedis (R), Dorsalis Pedis (L) - GI/Abdominal GI/Abdominal exam: Soft, Normal bowel sounds - Rectal Rectal exam: Deferred - exam: Deferred - Extremities Extremities exam: Pedal edema (RLE) - Neurological Neurological exam: Abnormal gait, Alert, Oriented X3 - Psychiatric Psychiatric exam: Normal affect, Normal mood - Skin Type of lesion: Other (abnormal lesions noted on chest) Description of rash: Macular H&P Results - Labs Result Diagrams: 04/11/18 05:50 04/11/18 05:50 Discharge Potential - Discharge Needs Community Services Used Prior to Admission: Home Health Aide, Home Health Nurse Patient Discharge Plan Description: Return Home, Visiting Nurse Community Services Needed at Discharge: Home Health Aide, Home Health Nurse, Occupational Therapy, Physical Therapy Plan - Swing Bed Certification Initial Certification Due: 04/07/18 14 Day Re-Cert Due: 04/21/18 44 Day Re-Cert Due: 05/21/18 74 Day Re-Cert Due: 06/20/18 - Detailed Diagnosis and Plan (1) Hip fracture Current Visit: Yes Status: Acute Base Code: S72.009A - FRACTURE OF UNSP PART OF NECK OF UNSP FEMUR, INIT Comment: - 04/08/2018 - date of admission s/p right hip fracture. - 04/19/2018: - To follow up with Orthopedic surgery on 04/20/18 - Daily PT/OT: strengthing, endurance, functional mobility and transfering. Most recent PT/OT report indicating independent ambulation and progression in functionality. (2) Impaired mobility Current Visit: Yes Status: Acute Base Code: Z74.09 - OTHER REDUCED MOBILITY Comment: 04/19/2018: - Impaired mobility s/p hip fracture with right hemiarthroplasty. - PT/OT daily treatment for strengthening/conditioning. - Fall precuations. Antivert 25mg Q8H PRN ordered. (3) DVT prophylaxis Current Visit: Yes Status: Acute Base Code: [id number] - Comment: 04/19/2018: Patient at moderate risk due to age, hospitalization, recent surgery , and impaired mobility -Lovenox 40mg SQ daily (4) Full code status Current Visit: Yes Status: Acute Base Code: Z78.9 - OTHER SPECIFIED HEALTH STATUS Comment: 04/19/2018: Patient is a full code. - Disposition The patient is progressing well with therapy and has minimal pain of the right hip. She is scheduled to be seen by Orthopedic tomorrow morning and plan is for discharge home on Thursday04/21/18.
[2018-04-19] MEDS: SPIRONOLACTONE 25 MG TAB PO SCH (09:27)
[2018-04-19] MEDS: ENOXAPARIN 40 MG/0.4 ML SYR SQ SCH (09:27)
[2018-04-19] MEDS: DOCUSATE SODIUM 100 MG CAPSULE PO SCH ×2 (09:27→21:28)
--- NOTE | 2018-04-19 13:15 | Occupational Therapy Tx Note ---
Occupational Therapy Tx Note - Treatment Note Tolerated: Good Total Time Spent With Patient: 60 (ADL) Occupational Therapy Treatment Note: Detail (S: Pt feeling good, no pain today. O: Sit to stand and amb to commode with 2 wheeled walker Indly. Pt completed toileting Indly including pants and hygiene. Pt doffed briefs and slipper socks with finance officer. Doffed gown with assist to untie. Pt completed total body showering on commode seat with hand held shower and use of long sponge and grab bar with SBA during standing. Pt dried self Indly. Pt ambulated to chair with 2 wheeled walker Indly. Donned briefs, pants and slipper socks with finance officer and sock aid after education re: use of equipment. Pt has opted to purchase finance officer, sock aid, long sponge, leg supervisor road administrator and long shoe horn. Pt doffed pants and donned gown Indly with finance officer. A: Pt has demonstrated Ind with total body dressing and showering with use of adaptive equipment while maintaining hip precautions. Endurance is significantly improved.) Occupational Therapy Problem List: Detail (1. Decreased Ind with dressing. 2. Decreased Ind with showering/bathing. 3. Decreased knowledge of total hip precautions. 4. Decreased UE strength and overall endurance needed to return home alone.) Occupational Therapy Goals: 1. Pt will be safe and Ind with total body dressing using adaptive equipment while maintaining total hip precautions. 2. Pt will be safe and Ind with showering and/or sponge bathing. 3. Pt will recall total hip precautions and demonstrate during ADLs. 4. Pt will improve overall endurance and UE strength to allow safe and Ind self cares and functional mobility. Prognosis: Good Occupational Therapy Plan: OT 2-4 times weekly to address self cares, functional mobility, endurance, UE function to allow safe and Ind return home.
--- NOTE | 2018-04-19 14:42 | Physical Therapy Tx Note ---
Physical Therapy Tx Note - Treatment Note Tolerated: Good Total Time Spent With Patient: 35 Physical Therapy Tx Note: Detail (The patient was taken to rehab department for mobility activities in the kitchen. The patient in a wheelchair was able to transport cup from cupboard to table, open oven and place dish in oven and manuever in tight spaces. The patient with use of wheeled walker was able to transport a cup from cupboard to table and was able to reach into both high and low cupboard. The patient then returned to room and was able to complete sit to supine transfer independently with effort and numerous tries to lift R LE into bed. Patient did not require service engineer. The patient was left in bed with call light in place.) Physical Therapy Problem List: Detail (1. General lower extremity weakness. 2. Requires assistance for transfers and gait. 3. Difficulty walking. 4. History of falls/fear of falling.) Physical Therapy Goals: 1. Pt will safely and independently get into/out of bed. 2. Pt will safely and independently perform stand pivot transfers with front-wheeled walker. 3. Pt will safely and independently ambulate over household distances/surfaces with appropriate assistive device. 4. Pt will exhibit at least 4/5 strength in major muscle groups of B LE's for greater stability with ambulation. Physical Therapy Plan: Pt will be seen 1-2 times daily M - F for instruction in LE strengthening exercises, transfer training, and gait and balance training to facilitate safe return to home environment.
[2018-04-20] MEDS: LEVOTHYROXINE SODIUM 100 MCG TABLET PO SCH (06:24)
[2018-04-20] MEDS: LORATADINE 10 MG TABLET PO SCH (09:22)
--- NOTE | 2018-04-20 09:22 | Physical Therapy Tx Note ---
Physical Therapy Tx Note - Treatment Note Tolerated: Good Total Time Spent With Patient: 15 Physical Therapy Tx Note: Detail (The patient was up in recliner chair when PT arrived. The patient's LE strength was retested and is as follows: R hip flexors,hip adductors 4/5, hip abductors 4-/5, quadriceps and hip extensors 3+/5 , hamstrings 4-/5, ankle musculature 4+ to 5/5. The patient's HEP was reviewed: the patient completed resisted hip abduction, LAQ, hamstring curlss with red theraband x 10 reps both LE's. The patient required verbal cues for proper technique. The PT was shortened due to the patient will be getting dressed and ready for an appointment. The patient will not be seen secondary to appointment with Orthopedic Physician this afternoon.) Physical Therapy Problem List: Detail (1. General lower extremity weakness. 2. Requires assistance for transfers and gait. 3. Difficulty walking. 4. History of falls/fear of falling.) Physical Therapy Goals: 1. Pt will safely and independently get into/out of bed. 2. Pt will safely and independently perform stand pivot transfers with front-wheeled walker. 3. Pt will safely and independently ambulate over household distances/surfaces with appropriate assistive device. 4. Pt will exhibit at least 4/5 strength in major muscle groups of B LE's for greater stability with ambulation. Physical Therapy Plan: Pt will be seen 1-2 times daily M - F for instruction in LE strengthening exercises, transfer training, and gait and balance training to facilitate safe return to home environment.
[2018-04-20] MEDS: DOCUSATE SODIUM 100 MG CAPSULE PO SCH ×2 (09:23→21:38)
[2018-04-20] MEDS: SPIRONOLACTONE 25 MG TAB PO SCH (09:23)
[2018-04-20] MEDS: ENOXAPARIN 40 MG/0.4 ML SYR SQ SCH (09:23)
[2018-04-20] MEDS: ACETAMINOPHEN 500 MG TABLET PO PRN ×2 (09:23→21:39)
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
[2018-04-21] MEDS: LEVOTHYROXINE SODIUM 100 MCG TABLET PO SCH (06:45)
[2018-04-21] MEDS: LORATADINE 10 MG TABLET PO SCH (09:35)
[2018-04-21] MEDS: ENOXAPARIN 40 MG/0.4 ML SYR SQ SCH (09:35)
[2018-04-21] MEDS: DOCUSATE SODIUM 100 MG CAPSULE PO SCH (09:35)
[2018-04-21] MEDS: SPIRONOLACTONE 25 MG TAB PO SCH (09:35)
[2018-04-21] MEDS: ACETAMINOPHEN 500 MG TABLET PO PRN (12:45)
--- NOTE | 2018-04-21 12:49 | Discharge Summary ---
Providers Discharge Summary Date: 04/21/18 Date of admission: 04/07/18 14:51 Attending physician: JERMAINE MATTHEWS Primary care physician: LUCI RAMOS PA-C Consults: Consult Orders 04/13/18 09:34 Consult ONCE Consulting Provider: KRAIG GRIFFITHS Physician Instructions: outpatient dermatology appt, swing bed pt, [phone] Reason For Exam: abnormal lesion on chest, hx melanoma Physical Exam - Vital Signs Vital Signs: Vital Signs - Last 24 Hrs Temp Pulse Resp BP Pulse Ox 04/21/18 08:00 98.7 F 88 16 122/68 98 04/20/18 20:00 98.6 F 106 H 18 136/71 95 - General General Appearance: Alert, Oriented x3, Cooperative, No acute distress Limitations: Physical limitation - Head Head exam: Atraumatic, Normocephalic, Normal inspection - Eye Eye exam: Normal appearance - ENT ENT exam: Mucous membranes moist - Neck Neck exam: Normal inspection, Full ROM - Respiratory Respiratory exam: Normal lung sounds bilaterally - Cardiovascular Cardiovascular Exam: Regular rate, Normal rhythm, Systolic murmur Peripheral Pulses: 2+: Radial (R), Radial (L), Dorsalis Pedis (R), Dorsalis Pedis (L) - GI/Abdominal GI/Abdominal exam: Soft, Normal bowel sounds - Rectal Rectal exam: Deferred - exam: Deferred - Extremities Extremities exam: Pedal edema (RLE) - Neurological Neurological exam: Abnormal gait, Alert, Oriented X3 - Psychiatric Psychiatric exam: Normal affect, Normal mood - Skin Type of lesion: Other (abnormal lesions noted on chest) Description of rash: Macular Hospitalization - Hospitalization Admission Diagnosis: rt hip hemiarthroplasty - Problem List/Discharge Diagnosis (1) Hip fracture Current Visit: Yes Status: Acute Base Code: S72.009A - FRACTURE OF UNSP PART OF NECK OF UNSP FEMUR, INIT Comment: - 04/08/2018 - date of admission s/p right hip fracture. - 04/19/2018: - To follow up with Orthopedic surgery on 04/20/18 - Daily PT/OT: strengthing, endurance, functional mobility and transfering. Most recent PT/OT report indicating independent ambulation and progression in functionality. (2) Impaired mobility Current Visit: Yes Status: Acute Base Code: Z74.09 - OTHER REDUCED MOBILITY Comment: 04/19/2018: - Impaired mobility s/p hip fracture with right hemiarthroplasty. - PT/OT daily treatment for strengthening/conditioning. - Fall precuations. Antivert 25mg Q8H PRN ordered. (3) DVT prophylaxis Current Visit: Yes Status: Acute Base Code: [id number] - Comment: 04/19/2018: Patient at moderate risk due to age, hospitalization, recent surgery , and impaired mobility -Lovenox 40mg SQ daily (4) Full code status Current Visit: Yes Status: Acute Base Code: Z78.9 - OTHER SPECIFIED HEALTH STATUS Comment: 04/19/2018: Patient is a full code. - Disposition The patient is progressing well with therapy and has minimal pain of the right hip. She is scheduled to be seen by Orthopedic tomorrow morning and plan is for discharge home on Thursday04/21/18. - Hospitalization Course Abnormal Labs: Abnormal Lab Results 04/11/18 04/11/18 Range/Units 05:50 05:50 RBC 3.66 L (3.80-5.40) M/uL Hgb 10.3 L (11.6-16.0) gm/dl Hct 34.4 L (35.0-47.0) % MCHC 29.9 L (32-36) g/dl Plt Count 436 H (130-400) K/uL Monocytes % 12.5 H (0-9) % Eosinophils % 8.6 H (0-6) % Carbon Dioxide 30.0 H (22-29) mmol/L Calcium 8.6 L (8.8-10.2) mg/dL Total Protein 5.4 L (6.6-8.7) g/dL Albumin 2.7 L (4.0-5.0) g/dL Albumin/Globulin Ratio 1.0 L (1.1-1.8) Discharge Medications - Discharge Medications Prescriptions: Acetaminophen [Tylenol 500Mg Tab] 1,000 mg PO Q6H PRN #30 tablet PRN Reason: Pain - Mild To Moderate (1-7) Home Medications: Ambulatory Orders Acetaminophen [Tylenol 500Mg Tab] 1,000 mg PO Q6H PRN #30 tablet 04/21/18 [Last Taken Unknown] Docusate Sodium [Colace] 100 mg PO BID cap 04/21/18 [Last Taken Unknown] Levothyroxine Sodium [Synthroid] 100 mcg PO DAILYTHY tablet 04/21/18 [Last Taken Unknown] Loperamide HCl [Immodium] 2 mg PO Q4H PRN capsule 04/21/18 [Last Taken Unknown] Loratadine [Claritin] 10 mg PO DAILY tablet 04/21/18 [Last Taken Unknown] Meclizine HCl [Antivert] 25 mg PO Q8H PRN tablet 04/21/18 [Last Taken Unknown] Spironolactone [Aldactone] 25 mg PO DAILY tablet 04/21/18 [Last Taken Unknown] Zinc Oxide [Desitin] 28.35 gm TOP BID PRN tube 04/21/18 [Last Taken Unknown] Discharge Plan - Discharge Instructions Activity at Discharge: Increase Activity as Tolerated, Resume Usual Activities As Tolerated Diet at Discharge: Regular Diet Additional Instructions: *Call your Adult Services manager of it, Glory Vogel, when you get home to re- start services: [phone] *[facility] will see you at home on Thursday, April 26. They will call you in the morning to let you know what time they are coming. Their phone # is [phone]. *[facility] visiting nursing has been set up to see you at home: *Appointment with Dr. Griffiths at [facility] at 12:00 ThuApril 23. Quality Measures - Quality Measures Quality Measures: Advance Directives, Documentation of Current Medications in Medical Record, Elder Maltreatment Screen and Follow-Up Plan, Screening for High Blood Pressure and F/U Documented - Current Medications Quality Measure: Measure #130: Documentation of Current Medications - Blood Pressure Screening Quality Measure: Screening for High Blood Pressure and Follow-Up Documented Blood Pressure Classification: Normal BP Reading Systolic Measurement: 112 Diastolic Measurement: 58 Screening for High Blood Pressure: < Normal BP, F/U Not Required > [G8783] - Advance Directives Quality Measure: Measure #47: Care Plan Advance Directives Established: No Advance Directives Information Provided To Patient: No Advance Directives on File: No Living Will: No Power of Ingot Supervisor: No - Elder Abuse Suspicion Index Screening: Elder Abuse Suspicion Index Screening Rely on people for bathing, dressing, shopping, banking, etc: Yes Prevented from getting food, clothes, medication, etc: No Made to feel shamed or threatened by someone: No Forced to sign papers or use money against will: No Feel afraid, touched in ways not wanted or hurt physically: No Poor eye contact, withdrawn, malnourished, cuts or bruises: No Screening Result: Negative result EASI Reference Information: Samantha MARCOS, Immanuel Givens, Haroldo Harmon, Shanel Brewster.Development and validation of a tool to assist physicians identification of elder abuse: The Elder Abuse Suspicion Index (EASI ). Journal of Elder Abuse and Neglect, 2008; 20 (3): 276-300. - Elder Maltreatment Screen Quality Measures: Elder Maltreatment Screen and Follow-Up Plan Elder Maltreatment Screen: <Negative, No Follow-Up Plan Required> [G5085]
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
== END 2018-04-21 13:05 | disposition home health service (06) | DRG 564 ==
LOC: MEDSURG 04-07 14:51
PROVIDERS: ADMIT Internal Medicine; ATTEND Internal Medicine
DX: Z96.641 Presence of right artificial hip joint (principal); S72.001A Fracture of unspecified part of neck of right femur, initial encounter for closed fracture; I10 Essential (primary) hypertension; E03.9 Hypothyroidism, unspecified; R42 Dizziness and giddiness; W19.XXXA Unspecified fall, initial encounter
CPT/HCPCS: 80053; 85025; 97110; 97530; 97535; 99306; 99309; 99316; J1650